=== PATIENT | male | born 1980 | race Caucasian/White ===

== ENCOUNTER 2017-12-10 22:17 | Observation (INO) | payer BC, OTHER ==
--- NOTE | 2017-12-10 23:18 | PDOC ---
History of Present Illness - General Chief Complaint: Back Pain Stated Complaint: BACK PAIN Time Seen by Provider: 12/10/17 22:51 - History of Present Illness Initial Comments: 12/10/17 23:14 37 year old male with no reported PMH presents to our ED c/o 1 day h/o back pain. Patient states he bent over yesterday afternoon to pick something up off the floor and felt a sudden sharp back pain and he was unable to return to a standing position until he took some leftover extra strength Motrin (800 mg). Back pain is constant, 10/10, localized to his sacral area. Patient denies any associated bowel/bladder incontinence as well as any numbness/tingling or fevers /chills. 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 NKDA Surgical: denies Social: denies nicotine, social alcohol, denies recreational drugs PMD: None - will refer to IM resident clinic Past History - Past Medical History Allergies/Adverse Reactions: Allergies Allergy/AdvReac Type Severity Reaction Status Date / Time No Known Allergies Allergy Verified 12/10/17 22:28 Home Medications: Ambulatory Orders NK [No Known Home Medication] 12/10/17 COPD: No Other medical history: Herniated disc - Suicide/Smoking/Psychosocial Hx Smoking History: Never smoked Have you smoked in the past 12 months: No Information on smoking cessation initiated: No Hx Alcohol Use: No Drug/Substance Use Hx: No Substance Use Type: None Review of Systems - Review of Systems Constitutional: No: Chills, Fever HEENTM: No: Recent change in vision Respiratory: No: Cough, Shortness of Breath Cardiac (ROS): No: Chest Pain, Lightheadedness, Palpitations ABD/GI: No: Constipated, Diarrhea, Nausea, Vomiting : No: Burning, Dysuria Neurological: No: Headache, Numbness, Tingling, Ataxia *Physical Exam - Vital Signs Last Vital Signs Temp Pulse Resp BP Pulse Ox 98.2 F 108 H 20 149/107 198 H 12/10/17 22:28 12/10/17 22:28 12/10/17 22:28 12/10/17 22:28 12/10/17 22:28 - Physical Exam General Appearance: Yes: Nourished, Appropriately Dressed HEENT: positive: EOMI, KATHERINE Neck: positive: Trachea midline, Supple Respiratory/Chest: positive: Normal Breath Sounds Cardiovascular: positive: S1, S2 Gastrointestinal/Abdominal: positive: Normal Bowel Sounds, Soft Musculoskeletal: positive: Other (Paraspinal sacral tenderness). negative: CVA Tenderness (R), CVA Tenderness (L) Extremity: positive: Normal Capillary Refill, Normal Inspection, Pelvis Stable Integumentary: positive: Normal Color, Dry, Warm Neurologic: positive: Fully Oriented, Alert, Motor Strength 5/5 Deep Tendon Reflexes: Knee (L): 3+, Knee (R): 3+ ED Treatment Course - LABORATORY CBC & Chemistry Diagram: 12/11/17 02:30 12/11/17 02:30 Medical Decision Making - Medical Decision Making 12/10/17 23:20 37 y.o. male with back pain -- acute onset while bending forward. Neurologically intact with parspinal tenderness no midline vertebral tenderness. Straight leg test negative. DDx muscle strain/spasm, fracture, herniated disc. Will obtain L/S XR. Pain control with Robaxin. Reasess. Patient refractory with Robaxin/Flexarall combo-- less likely muscular etiology. Will add Tramadol- patient counseled, amenable to trial of opiod medication. XR pending. Patient signed out to Dr. Kaplan (Resident). *DC/Admit/Observation/Transfer Diagnosis at time of Disposition: Lumbar back pain, Intractable back pain - Discharge Dispostion Condition at time of disposition: Stable - Referrals - Patient Instructions - Post Discharge Activity
[2017-12-10] MEDS ORDERED: METHOCARBAMOL 500 MG TABLET PO ONE (23:30)
[2017-12-10] MEDS ORDERED: CYCLOBENZAPRINE HCL 10 MG TABLET (FP) PO ONE (23:30)
[2017-12-10] MEDS ORDERED: METHOCARBAMOL 500 MG TABLET ONE (23:45)
[2017-12-10] MEDS ORDERED: CYCLOBENZAPRINE HCL 10 MG TABLET (FP) ONE (23:45)
--- NOTE | 2017-12-11 00:26 | PDOC ---
*Physical Exam - Vital Signs Last Vital Signs Temp Pulse Resp BP Pulse Ox 98.2 F 108 H 20 149/107 198 H 12/10/17 22:28 12/10/17 22:28 12/10/17 22:28 12/10/17 22:28 12/10/17 22:28 - Physical Exam Comments: 12/11/17 00:26 GENERAL: Awake, alert, and fully oriented, in no acute distress HEAD: No signs of trauma, normocephalic, atraumatic EYES: PERRLA, EOMI, sclera anicteric, conjunctiva clear ENT: Hearing grossly normal, nares patent, oropharynx clear without exudates. Moist mucosa NECK: Normal ROM, supple, no lymphadenopathy, JVD, or masses LUNGS: No distress, speaks full sentences, clear to auscultation bilaterally HEART: Regular rate and rhythm, normal S1 and S2, no murmurs, rubs or gallops, peripheral pulses normal and equal bilaterally. EXTREMITIES : Normal inspection, Normal range of motion, no edema. No clubbing or cyanosis. NEUROLOGICAL: Cranial nerves II through XII grossly intact. Normal speech, normal gait, no focal sensorimotor deficits Back: Lower paraspinal ttp. Absent midline ttp. Neg straight leg raise test. SKIN: Warm, Dry, normal turgor, no rashes or lesions noted ED Treatment Course - LABORATORY CBC & Chemistry Diagram: 12/11/17 02:30 12/11/17 02:30 - Medications Given in the ED: ED Medications Discontinued Medications Generic Name Dose Route Start Last Admin Trade Name Freq PRN Reason Stop Dose Admin Cyclobenzaprine HCl 5 mg 12/10/17 23:30 12/10/17 23:43 Flexeril - PO 12/10/17 23:31 5 mg ONCE ONE Administration Methocarbamol 1,000 mg 12/10/17 23:30 12/10/17 23:43 Robaxin - PO 12/10/17 23:31 1,000 mg ONCE ONE Administration Medical Decision Making - Medical Decision Making 12/11/17 00:17 37 yo M with no significant pmh who p/w lower back pain following strain while bending over to pick item off the floor w/ sudden sharp back pain and asx. pain w/ erect positioning.Denies alarm symptoms. No associated bowel/bladder incontinence, perianal numbness or tingling, weakness. Received handoff from Dr. Pascual. Pt. is pending lumbar sacral RAD. Has received 1000 mg, Flexeril 5 mg. R/o lumbar sacral herniation vs. frx. Suspect symptoms 2/2 lumbarsacral sprain/strain. ED Course: LUMBAR SACRAL RAD: 12/11/17 03:20 Pain refractory to morphine, tramadol, flexeril, robaxin, Valium. 12/11/17 03:22 LUMBAR SACRAL RAD: No acute changes. Chronic compression fracture T10-T11. 12/11/17 05:[address] Seth for intractable back pain. *DC/Admit/Observation/Transfer Diagnosis at time of Disposition: Lumbar back pain, Intractable back pain - Discharge Dispostion Condition at time of disposition: Stable Admit: Yes - Referrals Referrals: Yfn Frias MD [Staff Physician] - - Patient Instructions Printed Discharge Instructions: DI for Back Strain or Sprain Additional Instructions: Please return to the emergency department with any new or worsening symptoms or concerns. Please follow up with your primary care physician within 72 hours. Ibuprofen 800 mg every 8 hours as needed. - Post Discharge Activity - Attestations Physician Attestion: 12/11/17 00:18 I attest to the information provided in this note.
[2017-12-11] MEDS ORDERED: traMADol HCL 50 MG TABLET PO ONE (00:36)
[2017-12-11] MEDS ORDERED: traMADol HCL 50 MG TABLET ONE (00:37)
[2017-12-11] MEDS ORDERED: morphine CARPU-JECT 4 MG/1 ML DISP.SYRIN IVPUSH ONE (01:57)
[2017-12-11] MEDS ORDERED: morphine SULFATE 4 MG/ML VIAL ONE ×3 (01:58→12:05)
--- NOTE | 2017-12-11 02:18 | PDOC ---
Attending Attestation - Resident Resident Name: SamaraZofia - ED Attending Attestation I have performed the following: I have examined & evaluated the patient, The case was reviewed & discussed with the resident, I agree w/resident's findings & plan, Exceptions are as noted - HPI HPI: 12/11/17 02:12 37-year-old male with no significant past medical history presents emergency Department with 1 day of back pain since bending over yesterday to pick something up. He reports feeling a sudden sharp pain in his lower back and had difficulty standing upright. He took Motrin at the time which helped with the pain, however presents today due to persistent pain. He denies any lower extremity weakness or numbness. Denies any urinary or stool incontinence/ retention. Has been in his usual state of health, denies recent fevers, chills, chest pain, shortness of breath, headaches, abdominal pain, nausea/vomiting/ diarrhea. - Physicial Exam PE: 12/11/17 02:15 Agree with the resident exam - Medical Decision Making 12/11/17 02:15 37-year-old male presents emergency Department with lower back pain after bending down to pick something up yesterday. Vitals unremarkable (triage HR 108 , HR on my exam 94). Exam with bilateral sacral tenderness to palpation, no midline spinal tenderness palpation in cervical, thoracic or lumbar spine. Patient is neurologically intact. Likely muscle strain. Patient initially was given Robaxin and Flexeril with minimal relief. Patient was given tramadol, will need reassessment. Patient signed out to Dr. Roblero for further management.
[2017-12-11 02:35] LABS: EOS % 2.4 % (0-4.5); HEMATOCRIT 48.7 % (35.4-49); HEMOGLOBIN 16.8 GM/dL (11.7-16.9); LYMPH % 38.3 % (8-40); MCH 29.7 pg (25.7-33.7); MCHC 34.4 g/dl (32.0-35.9); MEAN CELL VOLUME 86.3 fl (80-96); MEAN PLT VOLUME 9.6 fl (7.5-11.1); MONO % 6.8 % (3.8-10.2); NEUT % 51.5 % (42.8-82.8); PLATELET COUNT 243 K/MM3 (134-434); RBC 5.65 M/mm3 (4.00-5.60); RDW 14.6 % (11.9-15.9); WHITE BLOOD COUNT 10.7 K/mm3 (4.0-10.0)
[2017-12-11 02:56] LABS: ALBUMIN 4.8 g/dl (3.4-5.0); ANION GAP 10 (8-16); BILIRUBIN,TOTAL 0.5 mg/dL (0.2-1.0); BLOOD UREA NITROGEN 18 mg/dL (7-18); CALCIUM 9.5 mg/dL (8.5-10.1); CHLORIDE 102 mmol/L (98-107); CO2 27 mmol/L (21-32); GLUCOSE,RANDOM 90 mg/dL (74-106); POTASSIUM 4.5 mmol/L (3.5-5.1); SGOT/AST 31 U/L (15-37); SGPT/ALT 80 U/L (12-78); SODIUM 139 mmol/L (136-145); TOT PROT 8.7 g/dl (6.4-8.2)
[2017-12-11 02:57] LABS: ALK PHOS 155 U/L (45-117)
[2017-12-11] MEDS ORDERED: diazePAM 5 MG TABLET PO ONE (03:20)
[2017-12-11] MEDS ORDERED: diazePAM 5 MG TABLET ONE (03:22)
--- NOTE | 2017-12-11 06:06 | HP ---
CHIEF COMPLAINT:back pain PCP:none HISTORY OF PRESENT ILLNESS: 37M no pmh presents wiht lower back pain started yesterday when bending to pick something up. sharp, shooting pain to both his legs. Taking ibuprofen at home to no effect. no weakness or numbness in legs. no urine fecal incontinence ER pain meds were of some benefit, but mostly put him to sleep ER course was notable for: (1) pain control with morphine valium, flexeril, robaxin tramadol Social History: Smoking:no Alcohol:no Drugs: no Family History:n/c Allergies No Known Allergies Allergy (Verified 12/10/17 22:28) HOME MEDICATIONS: Home Medications Medication Instructions Recorded NK [No Known Home Medication] 12/10/17 REVIEW OF SYSTEMS CONSTITUTIONAL: Absent: fever, chills, diaphoresis, generalized weakness, malaise, loss of appetite, weight change HEENT: Absent: rhinorrhea, nasal congestion, throat pain, throat swelling, difficulty swallowing, mouth swelling, ear pain, eye pain, visual changes CARDIOVASCULAR: Absent: chest pain, syncope, palpitations, irregular heart rate, lightheadedness , peripheral edema RESPIRATORY: Absent: cough, shortness of breath, dyspnea with exertion, orthopnea, wheezing, stridor, hemoptysis GASTROINTESTINAL: Absent: abdominal pain, abdominal distension, nausea, vomiting, diarrhea, constipation, melena, hematochezia GENITOURINARY: Absent: dysuria, frequency, urgency, hesitancy, hematuria, flank pain, genital pain MUSCULOSKELETAL: Absent: myalgia, arthralgia, joint swelling, back pain, neck pain SKIN: Absent: rash, itching, pallor HEMATOLOGIC/IMMUNOLOGIC: Absent: easy bleeding, easy bruising, lymphadenopathy, frequent infections ENDOCRINE: Absent: unexplained weight gain, unexplained weight loss, heat intolerance, cold intolerance NEUROLOGIC: Absent: headache, focal weakness or paresthesias, dizziness, unsteady gait, seizure, mental status changes, bladder or bowel incontinence PSYCHIATRIC: Absent: anxiety, depression, suicidal or homicidal ideation, hallucinations. PHYSICAL EXAMINATION Vital Signs - 24 hr 12/10/17 12/11/17 22:28 00:33 Temperature 98.2 F 98.3 F Pulse Rate 108 H Pulse Rate [ 78 Left Radial] Respiratory 20 20 Rate Blood Pressure 149/107 Blood Pressure 125/80 [Left Arm] O2 Sat by Pulse 198 H 98 Oximetry (%) GENERAL: Awake, alert, and fully oriented, in no acute distress. HEAD: Normal with no signs of trauma. EYES: Pupils equal, round and reactive to light, extraocular movements intact, sclera anicteric, conjunctiva clear. No lid lag. EARS, NOSE, THROAT: Ears normal, nares patent, oropharynx clear without exudates. Moist mucous membranes. NECK: Normal range of motion, supple without lymphadenopathy, JVD, or masses. LUNGS: Breath sounds equal, clear to auscultation bilaterally. No wheezes, and no crackles. No accessory muscle use. HEART: Regular rate and rhythm, normal S1 and S2 without murmur, rub or gallop. ABDOMEN: Soft, nontender, not distended, normoactive bowel sounds, no guarding, no rebound, no masses. No hepatomegaly or splenomegaly. MUSCULOSKELETAL: paraspinal tenderness in lower lumbar area. UPPER EXTREMITIES: 2+ pulses, warm, well-perfused. No cyanosis. No clubbing. No peripheral edema. LOWER EXTREMITIES: 2+ pulses, warm, well-perfused. No calf tenderness. No peripheral edema. NEUROLOGICAL: sensation and strength in LE intact, exam of knee and hip limited due to pain in back PSYCHIATRIC: Cooperative. Good eye contact. Appropriate mood and affect. SKIN: Warm, dry, normal turgor, no rashes or lesions noted, normal capillary refill. Laboratory Results - last 24 hr 12/11/17 12/11/17 02:30 02:30 WBC 10.7 H RBC 5.65 H Hgb 16.8 Hct 48.7 MCV 86.3 MCH 29.7 MCHC 34.4 RDW 14.6 Plt Count 243 MPV 9.6 Neutrophils % 51.5 Lymphocytes % 38.3 Monocytes % 6.8 Eosinophils % 2.4 Basophils % 1.0 Sodium 139 Potassium 4.5 Chloride 102 Carbon Dioxide 27 Anion Gap 10 BUN 18 Creatinine 1.0 Creat Clearance w eGFR > 60 Random Glucose 90 Calcium 9.5 Total Bilirubin 0.5 AST 31 ALT 80 H Alkaline Phosphatase 155 H Total Protein 8.7 H Albumin 4.8 ASSESSMENT/PLAN: 37M with acute back pain, likely muscle spasm , nonspecific pain initiate conservative therapy with pain control IV tylenol IV morphine IVF DVT ppx Visit type - Emergency Visit Emergency Visit: Yes ED Registration Date: 12/11/17 Care time: The patient presented to the Emergency Department on the above date and was hospitalized for further evaluation of their emergent condition. - New Patient This patient is new to me today: Yes Date on this admission: 12/11/17 - Critical Care Critical Care patient: No Hospitalist Screening - Colonoscopy Questionnaire Colonoscopy Questionnaire: Colonoscopy Questionnaire - Patient: 50 - 75 years old and never had a screening colonoscopy: No History of colon or rectal polyps, or CA: No History of IBD, Crohn's disease or UC: No History of abdominal radiation therapy as a child: No - Relative: 1 with colon or rectal CA, or polyps at age 60 or younger: Unknown Colon or rectal CA diagnosed at age 45 or younger: Unknown Multiple relatives with colon or rectal CA: Unknown - Outcome: Screening Result: Negative Screen
[2017-12-11] MEDS ORDERED: ACETAMINOPHEN 1000 MG/100 ML VIAL (NON FORMULARY) IVPB SCH (06:15)
[2017-12-11] MEDS: SODIUM CHLORIDE 1,000 ML IV SCH ×3 (06:18→23:24)
[2017-12-11] MEDS ORDERED: ACETAMINOPHEN INJECTION 100 ML IVPB ONE (06:19)
[2017-12-11] MEDS: morphine CARPU-JECT 4 MG/1 ML DISP.SYRIN IVPUSH PRN ×2 (08:31→12:11)
[2017-12-11] MEDS ORDERED: LIDOCAINE 5% TOPICAL PATCH ONE (09:59)
[2017-12-11] MEDS ORDERED: ENOXAPARIN NA (PORCINE) 40 MG/0.4 ML DISP.SYRIN SQ SCH (10:00)
[2017-12-11] MEDS: LIDOCAINE 5% TOPICAL PATCH TP SCH (10:03)
[2017-12-11 11:15] VITALS: BMI 29.7
[2017-12-11] MEDS: ACETAMINOPHEN 325 MG TABLET (FP) PO SCH ×2 (12:11→18:49)
[2017-12-11] MEDS: CYCLOBENZAPRINE HCL 10 MG TABLET (FP) PO SCH ×2 (13:53→23:20)
--- NOTE | 2017-12-11 15:12 | CON.CARD ---
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 He is on no medications for HTN. He injuried his back and is in the ED with back pain. He has no cardiac symptoms. Routine EKG reveals Sinus tachycardia at 106 BPM with normal intervals and normal axis. There is loss of R-wave progression for V2 to V3 which is likely due to lead placement variation and no Q wave in lead II, a narrow Q-wave in III , and an insignificant Q-wave in avF. This likely does not represent inferior wall pathology. - Alcohol/Substance Use Hx Alcohol Use: No - Smoking History Smoking history: Never smoked Have you smoked in the past 12 months: No Home Medications - Allergies Allergies/Adverse Reactions: Allergies Allergy/AdvReac Type Severity Reaction Status Date / Time No Known Allergies Allergy Verified 12/10/17 22:28 - Home Medications Home Medications: Ambulatory Orders NK [No Known Home Medication] 12/10/17 Review of Systems Findings/Remarks: As per HPI Vital Signs: Vital Signs Temperature 98.2 F 12/11/17 08:51 Pulse Rate 107 H 12/11/17 08:51 Respiratory Rate 20 12/11/17 09:00 Blood Pressure 169/107 12/11/17 08:51 O2 Sat by Pulse Oximetry (%) 98 12/11/17 09:00 Constitutional: Yes: Well Nourished HENT: Yes: WNL Neck: Yes: WNL Respiratory: Yes: CTA Bilaterally Gastrointestinal: Yes: Soft Cardiovascular: Yes: Regular Rate and Rhythm (NL S1S2, no MRHG) JVD: No Musculoskeletal: Yes: Back Pain Extremities: Yes: WNL Edema: No Neurological: Yes: Alert, Oriented (Grossly non focal) - Other Data Labs, Other Data: CBC, BMP 12/11/17 02:30 12/11/17 02:30 Assessment/Plan 37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 He is on no medications for HTN. He injuried his back and is in the ED with back pain. He has no cardiac symptoms. Routine EKG reveals Sinus tachycardia at 106 BPM with normal intervals and normal axis. There is loss of R-wave progression for V2 to V3 which is likely due to lead placement variation and no Q wave in lead II, a narrow Q-wave in III , and an insignificant Q-wave in avF. This likely does not represent inferior wall pathology. BP was 169/109 mmHg No in-patient cardiac work up required for these subtle EKG changes Once he is no longer in pain from his back, I would recommend a re-evaluation of his blood pressure which should be treated if elevated Once he is no longer in pain from his back, given his profession, he should undergo a stress test to assure that the EKG does not reflect underlying pathology
--- NOTE | 2017-12-11 15:49 | PN ---
Physical Exam: SUBJECTIVE: Patient seen and examined in the ER awaiting bed assignment. In no acute distress. States morphine is helping him. Denies any prior back injury No incontinence, no leg pain or numbness OBJECTIVE: Vital Signs Period Temp Pulse Resp BP Sys/Nguyen Pulse Ox Last 24 Hr 98.2 F-98.3 F 78-108 20-20 122-169/80-107 97-198 GENERAL: The patient is awake, alert, and fully oriented, in no acute distress. HEAD: Normal with no signs of trauma. EYES: PERRL, extraocular movements intact, sclera anicteric, conjunctiva clear. No ptosis. ENT: Ears normal, nares patent, oropharynx clear without exudates, moist mucous membranes. NECK: Trachea midline, full range of motion, supple. LUNGS: Breath sounds equal, clear to auscultation bilaterally, no wheezes, no crackles, no accessory muscle use. HEART: Regular rate and rhythm. ABDOMEN: Soft, nontender, nondistended, normoactive bowel sounds, no guarding, no rebound, no hepatosplenomegaly, no masses. EXTREMITIES:no edema. NEUROLOGICAL:Normal speech, gait not observed. PSYCH: Normal mood, normal affect. SKIN: Warm, dry, normal turgor, no rashes or lesions noted Laboratory Results - last 24 hr 12/11/17 12/11/17 02:30 02:30 WBC 10.7 H RBC 5.65 H Hgb 16.8 Hct 48.7 MCV 86.3 MCH 29.7 MCHC 34.4 RDW 14.6 Plt Count 243 MPV 9.6 Neutrophils % 51.5 Lymphocytes % 38.3 Monocytes % 6.8 Eosinophils % 2.4 Basophils % 1.0 Sodium 139 Potassium 4.5 Chloride 102 Carbon Dioxide 27 Anion Gap 10 BUN 18 Creatinine 1.0 Creat Clearance w eGFR > 60 Random Glucose 90 Calcium 9.5 Total Bilirubin 0.5 AST 31 ALT 80 H Alkaline Phosphatase 155 H Total Protein 8.7 H Albumin 4.8 Active Medications Generic Name Dose Route Start Last Admin Trade Name Freq PRN Reason Stop Dose Admin Acetaminophen 650 mg 12/11/17 12:00 12/11/17 12:11 Tylenol - PO 650 mg Q6H GREGORY Administration Cyclobenzaprine HCl 5 mg 12/11/17 14:00 12/11/17 13:53 Flexeril - PO 5 mg TID GREGORY Administration Enoxaparin Sodium 40 mg 12/11/17 10:00 12/11/17 10:00 Lovenox - SQ 40 mg DAILY GREGORY Administration Sodium Chloride 1,000 mls @ 100 mls/hr 12/11/17 06:15 12/11/17 06:18 Normal Saline - IV 100 mls/hr ASDIR GREGORY Administration Lidocaine 2 patch 12/11/17 10:00 12/11/17 10:03 Lidoderm Patch - TP 2 patch DAILY GREGORY Administration Miscellaneous 1 each 12/11/17 22:00 Lidoderm Patch Removal MC DAILY@2200 GREGORY Morphine Sulfate 4 mg 12/11/17 06:09 12/11/17 12:11 Morphine Injection - IVPUSH 4 mg Q4H PRN Administration PAIN LEVEL 7 - 10 ASSESSMENT/PLAN: Patient is a 37 year old male with no significant past medical history. He presents to the ED with c/o of lower back pain that started yesterday. 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 Took some NSAIDs at home with little effect. Denies weakness in legs. Denies any fecal or urine incontinence. Lumbar spine: partially compressed lower thoracic vertebral bodies t10>t12. Minimal wedging L1. Ortho: Back Pain, acute Lumbar spine shows t10-t12 compressed lower thoracic vertebral bodies Pain management with morphine, Tylenol, Lidoderm patch, flexiril Ortho consulted Cardiology: Hypertension, tachycardia Likely secondary to pain Will not treat at the moment EKG suggestive of anterior infarcts Seen by fleet operations manager Stress test as an outpatient Disposition: full code. Visit type - Emergency Visit Emergency Visit: Yes ED Registration Date: 12/11/17 Care time: The patient presented to the Emergency Department on the above date and was hospitalized for further evaluation of their emergent condition. - New Patient This patient is new to me today: Yes Date on this admission: 12/12/17 - Critical Care Critical Care patient: No - Discharge Referral Referred to [facility] Med P.C.: No
[2017-12-11] MEDS ORDERED: DOCUSATE SODIUM 100 MG CAPSULE (FP) PO PRN (16:45)
[2017-12-11] MEDS: morphine SULFATE 4 MG/ML VIAL IVPUSH PRN (17:04)
--- NOTE | 2017-12-11 18:00 | CON.ORTH ---
Consult Reason for Consultation:: LBP - Alcohol/Substance Use Hx Alcohol Use: No - Smoking History Smoking history: Never smoked Have you smoked in the past 12 months: No Home Medications - Allergies Allergies/Adverse Reactions: Allergies Allergy/AdvReac Type Severity Reaction Status Date / Time No Known Allergies Allergy Verified 12/10/17 22:28 - Home Medications Home Medications: Ambulatory Orders NK [No Known Home Medication] 12/10/17 Physical Exam for Ortho Vital Signs: Vital Signs Temperature 98.4 F 12/11/17 17:01 Pulse Rate 92 H 12/11/17 17:01 Respiratory Rate 20 12/11/17 17:01 Blood Pressure 160/105 12/11/17 17:01 O2 Sat by Pulse Oximetry (%) 98 12/11/17 09:00 Neurological: Yes: WNL, Alert, Oriented, Other (LS Spine- + ttp, decr rom, + slr , nvi) Labs: CBC, BMP 12/11/17 02:30 12/11/17 02:30 Imaging - Results X-ray: Report Reviewed, Image Reviewed Assessment/Plan 37M with no pmh presents with lower back pain starting 2 days ago when bending to pick something up. sharp, shooting pain to both his legs. Denies any weakness or numbness in legs. Denies bowel/bladder dysfunction. Of note pt has had previous xrays of LS spine that showed same partially compressed vertebra. a/p- LS spine strain, possible HNP NSAIDs, muscle relaxors pain control PT eval ok to d/c when pain has improved f/u in the office next week, call for appt d/w Dr. Paez
[2017-12-11] MEDS ORDERED: LIDOCAINE PATCH REMOVAL MC SCH (22:00)
[2017-12-11] MEDS: CELECOXIB 200 MG CAPSULE PO SCH (23:21)
[2017-12-12] MEDS: ACETAMINOPHEN 325 MG TABLET (FP) PO SCH ×2 (02:28→06:10)
[2017-12-12] MEDS: CYCLOBENZAPRINE HCL 10 MG TABLET (FP) PO SCH (06:12)
[2017-12-12] MEDS: SODIUM CHLORIDE 1,000 ML IV SCH (06:12)
[2017-12-12] MEDS: morphine SULFATE 4 MG/ML VIAL IVPUSH PRN (09:09)
[2017-12-12] MEDS ORDERED: DOCUSATE SODIUM 100 MG CAPSULE (FP) PO SCH (10:00)
[2017-12-12] MEDS ORDERED: PT OWN MED DRAWER 7, Y5N ONE (10:06)
[2017-12-12] MEDS: LIDOCAINE 5% TOPICAL PATCH TP SCH (10:08)
[2017-12-12] MEDS: CELECOXIB 200 MG CAPSULE PO SCH (10:08)
[2017-12-12 11:32] VITALS: BP 143/100; PULSE 96; TEMP 98.6
--- NOTE | 2017-12-12 11:55 | DS ---
Physical Exam: SUBJECTIVE: Patient seen and examined at the bedside. Feels better today, pain is more controlled able to ambulate with PT back brace provided outpatient follow up with Dr. Paez Patient to not return to to work until cleared by ortho. OBJECTIVE: Vital Signs Period Temp Pulse Resp BP Sys/Nguyen Pulse Ox Last 24 Hr 97.5 F-98.6 F 85-101 16-20 143-160/82-105 96 PHYSICAL EXAM GENERAL: The patient is awake, alert, and fully oriented, in no acute distress. HEAD: Normal with no signs of trauma. EYES: PERRL, extraocular movements intact, sclera anicteric, conjunctiva clear. No ptosis. ENT: Ears normal, nares patent, oropharynx clear without exudates, moist mucous membranes. NECK: Trachea midline, full range of motion, supple. LUNGS: Breath sounds equal, clear to auscultation bilaterally, no wheezes, no crackles, no accessory muscle use. HEART: Regular rate and rhythm. ABDOMEN: Soft, nontender, nondistended, normoactive bowel sounds, no guarding, no rebound, no hepatosplenomegaly, no masses. EXTREMITIES:no edema. NEUROLOGICAL:Normal speech, gait not observed. PSYCH: Normal mood, normal affect. SKIN: Warm, dry, normal turgor, no rashes or lesions noted LABS HOSPITAL COURSE: Date of Admission:12/11/17 Date of Discharge: 12/12/17 Patient is a 37 year old male with no significant past medical history. He presents to the ED with c/o of lower back pain that started on 12/12/2017. 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 Took some NSAIDs at home with little effect. Denies weakness in legs. Denies any fecal or urine incontinence. Lumbar spine: partially compressed lower thoracic vertebral bodies t10>t12. Minimal wedging L1. 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 Discharge home. Minutes to complete discharge: 60 Discharge Summary Reason For Visit: INTRACTABLE BACK PAIN Current Active Problems Intractable back pain (Acute) Lumbar back pain (Acute) Condition: Stable - Instructions Diet, Activity, Other Instructions: Please return to the emergency department with any new or worsening symptoms or concerns. Please follow up with your primary care physician within 72 hours. Ibuprofen 800 mg every 8 hours as needed. Mr. Early: You have been prescribed the following medications. Celebrex 200mg twice per day at 8am and 8pm Percocet 10/325 4 times per day as needed Flexiril 5mg three times per day Ibuprophen 800mg every 8 hours Please take an over the counter stool softner (colace) as pain medications can constipate you. Please do not return to work until you are seen and evaluated by your police department and by orthopedic physiciain (Dr. Paez) within 1 week. Please call me with any questions that you may have. [facility], [facility] [phone] [facility] @ [facility] Referrals: Yfn Frias MD [Staff Physician] - 1 Week Luis Gaming MD [Staff Physician] - ((cardiologis), recommends a stress test ) Costa Paez MD [Staff Physician] - 1 Week Disposition: HOME - Home Medications Comprehensive Discharge Medication List: Ambulatory Orders Celecoxib [CeleBREX -] 200 mg PO BID #14 capsule 12/12/17 Celecoxib [Celebrex] 200 mg PO BID #14 capsule 12/12/17 Cyclobenzaprine HCl [Flexeril -] 5 mg PO TID #21 tablet 12/12/17 Docusate Sodium [Colace -] 100 mg PO BID capsule 12/12/17 Docusate Sodium [Colace -] 100 mg PO BID PRN capsule 12/12/17 Oxycodone HCl/Acetaminophen [Oxycodone-Acetaminophen 10-325] 1 each PO QID #16 tablet MDD 4 tabs 12/12/17 This patient is new to me today: No Emergency Visit: Yes ED Registration Date: 12/11/17 Care time: The patient presented to the Emergency Department on the above date and was hospitalized for further evaluation of their emergent condition. Critical Care patient: No - Discharge Referral Referred to [facility] No
--- NOTE | 2017-12-12 21:39 | EKG ---
Test Reason : Blood Pressure : / mmHG Vent. Rate : 105 BPM Atrial Rate : 105 BPM P-R Int : 132 ms QRS Dur : 088 ms QT Int : 332 ms P-R-T Axes : 036 045 020 degrees QTc Int : 438 ms SINUS TACHYCARDIA INFERIOR INFARCT , AGE UNDETERMINED CANNOT RULE OUT ANTERIOR INFARCT , AGE UNDETERMINED ABNORMAL ECG NO PREVIOUS ECGS AVAILABLE Confirmed by ZOEY SANDOVAL MD ([id number]) on 12/12/2017 9:39:06 PM Referred By: Confirmed By:ZOEY SANDOVAL MD
== END 2017-12-12 12:45 | disposition home or self-care (01) ==
LOC: JER 22:17 → JERBED 12-11 05:15 → UNDOADMOB 12-11 05:19 → JERBED 12-11 05:19 → J6S 12-11 16:45
PROVIDERS: ADMIT Internal Medicine; ATTEND Nurse Practitioner Family
PROC: 3E033NZ Introduction of Analgesics, Hypnotics, Sedatives into Peripheral Vein, Percutaneous Approach (ICD-10-PCS; principal; 2017-12-11)
PROC: 3E0337Z Introduction of Electrolytic and Water Balance Substance into Peripheral Vein, Percutaneous Approach (ICD-10-PCS; 2017-12-11)
PROC: 3E013GC Introduction of Other Therapeutic Substance into Subcutaneous Tissue, Percutaneous Approach (ICD-10-PCS; 2017-12-11)
DX: M54.5 Low back pain (principal); R00.0 Tachycardia, unspecified
CPT/HCPCS: 36415; 72100-TC-FY; 80053; 85025; 93005; 93010; 97116-GP; 97161-GP; 99285-25; G0378; J0131; J7030